=== PATIENT | female | born 1950 | race Caucasian/White ===

== ENCOUNTER 2019-02-22 10:58 | Observation (INO) | payer MEDICARE, OTHER ==
[~2019-02-22] VITALS: Ht 167.6 cm; Wt 84.8 kg
[2019-02-22 11:30] LABS: BASOPHILS ABSOLUTE AUTO 0.04 K/mm3 (0.00-0.23); BASOPHILS PERCENT AUTO 0 % (0-2); EOSINOPHILS ABSOLUTE AUTO 0.01 K/mm3 (0.00-0.68); EOSINOPHILS PERCENT AUTO 0 % (0-6); IMMATURE GRAN ABSOLUTE AUTO 0.03 K/mm3 (0.00-0.10); IMMATURE GRAN PERCENT AUTO 0 % (0-1); LYMPHOCYTES PERCENT AUTO 7 % (21-46); MONOCYTES ABSOLUTE AUTO 0.22 K/mm3 (0.16-1.47); MONOCYTES PERCENT AUTO 2 % (4-13); Mean Corpuscular HGB 26.1 pg (26.0-34.0); Mean Corpuscular HGB Conc 34.2 g/dL (31.5-36.5); Mean Corpuscular Volume 76 fL (80-100); Mean Platelet Volume 9.8 fL (9.1-12.4); NEUTROPHILS PERCENT AUTO 90 % (41-73); Platelet Count 297 K/mm3 (150-400); RDW Coefficient Variation 12.7 % (11.7-14.2); RDW Standard Deviation 34.5 fL (35.1-46.3); Red Blood Cell Count 4.99 M/mm3 (3.80-5.20)
[2019-02-22 11:49] LABS: Alanine Aminotransfer (ALT/SGP 21 U/L (12-78); Albumin, Blood 3.7 g/dL (3.4-5.0); Alk Phos 78 U/L (50-136); Anion Gap 11 mmol/L (6-16); Aspartate Aminotrans (AST/SGOT 14 U/L (12-37); Bilirubin, Total 0.5 mg/dL (0.1-1.0); Blood Urea Nitrogen 19 mg/dL (8-24); Bun/Creatinine Ratio 28.4 (12.0-20.0); CO2, Blood 24 mmol/L (21-32); Calcium, Blood 9.2 mg/dL (8.5-10.1); Chloride, Blood 101 mmol/L (98-108); Creatinine, Blood 0.67 mg/dL (0.40-1.00); Globulin, Blood 3.6 g/dL (2.2-4.0); Glomerular Filtration Rate >60 (60-); Glucose, Blood 242 mg/dL (70-99); Potassium, Blood 3.4 mmol/L (3.5-5.5); Sodium, Blood 136 mmol/L (136-145); Total Protein, Blood 7.3 g/dL (6.4-8.2)
[2019-02-22] MEDS ORDERED: AMLO5 PO (12:17)
[2019-02-22] MEDS ORDERED: METF500 PO (12:17)
[2019-02-22] MEDS ORDERED: GLIP5 PO (12:17)
[2019-02-22] MEDS ORDERED: LOSARTAN-HCTZ1 EAC1 PO (14:42)
--- NOTE | 2019-02-22 17:50 | NUR ---
SHIFT SUMMARY PT A&OX4, VSS, REP PAIN TOLERABLE AT THIS TIME. HITESH PO, DENIES N&V AT THIS TIME. VOIDING WELL. AMB INDEPENDENT TO BRP. SHOWERED TODAY. PLAN FOR NPO AT MIDNIGHT FOR SURGERY TOMORROW. WILL REPORT TO ONCOMING NOC RN.
[2019-02-23 02:53] LABS: BASOPHILS ABSOLUTE AUTO 0.05 K/mm3 (0.00-0.23); BASOPHILS PERCENT AUTO 0 % (0-2); EOSINOPHILS ABSOLUTE AUTO 0.03 K/mm3 (0.00-0.68); EOSINOPHILS PERCENT AUTO 0 % (0-6); Hematocrit 37.4 % (33.0-51.0); Hemoglobin 12.5 g/dL (11.5-16.0); IMMATURE GRAN ABSOLUTE AUTO 0.05 K/mm3 (0.00-0.10); IMMATURE GRAN PERCENT AUTO 0 % (0-1); LYMPHOCYTES ABSOLUTE AUTO 2.19 K/mm3 (0.84-5.20); LYMPHOCYTES PERCENT AUTO 17 % (21-46); MONOCYTES ABSOLUTE AUTO 0.97 K/mm3 (0.16-1.47); MONOCYTES PERCENT AUTO 8 % (4-13); Mean Corpuscular HGB Conc 33.4 g/dL (31.5-36.5); Mean Corpuscular Volume 78 fL (80-100); Mean Platelet Volume 9.8 fL (9.1-12.4); NEUTROPHILS ABSOLUTE AUTO 9.38 K/mm3 (1.96-9.15); NEUTROPHILS PERCENT AUTO 74 % (41-73); Platelet Count 302 K/mm3 (150-400); RDW Coefficient Variation 12.8 % (11.7-14.2); RDW Standard Deviation 36.5 fL (35.1-46.3); White Blood Cell Count 12.67 K/mm3 (4.00-11.30)
[2019-02-23 03:11] LABS: Alanine Aminotransfer (ALT/SGP 16 U/L (12-78); Albumin, Blood 3.3 g/dL (3.4-5.0); Alk Phos 73 U/L (50-136); Anion Gap 8 mmol/L (6-16); Aspartate Aminotrans (AST/SGOT 16 U/L (12-37); Bilirubin, Total 0.5 mg/dL (0.1-1.0); Blood Urea Nitrogen 15 mg/dL (8-24); Bun/Creatinine Ratio 22.5 (12.0-20.0); CO2, Blood 24 mmol/L (21-32); Calcium, Blood 8.5 mg/dL (8.5-10.1); Chloride, Blood 104 mmol/L (98-108); Creatinine, Blood 0.67 mg/dL (0.40-1.00); Globulin, Blood 3.3 g/dL (2.2-4.0); Glomerular Filtration Rate >60 (60-); Glucose, Blood 196 mg/dL (70-99); Potassium, Blood 3.4 mmol/L (3.5-5.5); Sodium, Blood 136 mmol/L (136-145); Total Protein, Blood 6.6 g/dL (6.4-8.2)
--- NOTE | 2019-02-23 08:09 | NUR ---
SHIFT SUMMARY: RANDEE REPORTS THAT HER PAIN IS WELL CONTROLLED WITH 1 MG DILAUDID. EARLY IN THE SHIFT SHE DID HAVE SOME NAUSEA AND VOMITING WHICH HAS RESOLVED. SHE WAS MADE NPO AT MIDNIGHT. SHE IS INDEPEDENT IN THE ROOM, NO DIFFICULTY VOIDING. SHE IS ABLE TO MAKE HER NEEDS KNOWN. SHE IS LYING COMFORTABLY IN BED WITH HER CALL LIGHT IN REACH. VSS.
--- NOTE | 2019-02-23 12:20 | NUR ---
PT TO DAY SURGERY VIA [facility]
--- NOTE | 2019-02-23 12:39 | NUR ---
Surgical site prepped with 2% Chlorhexidine cloth wipe. History, Chart, Medications and Allergies reviewed before start of procedure. Lungs clear T/O to Auscultation. Patient confirms NPO status and agrees with scheduled surgery. Pre-Op teaching done. Pt verbalizes understanding.
--- NOTE | 2019-02-23 15:10 | NUR ---
POST OP RETURNS POST OP TO ROOM. ABD SOFT. LAP SITES x 4. GAUZE W/ TEGADERM OVER. NO DRAINAGE NOTED. DENIES PAIN OR NAUSEA. LUNGS CLEAR. WATER, CRACKERS, AND APPLESAUCE GIVEN. UP TO VOID IMMEDIATELY.
--- NOTE | 2019-02-23 18:08 | NUR ---
SHIFT SUMMARY PT HAS DONE WELL BOTH PRE AND POST OP. UP EASILY IN ROOM, VOIDING, AND HAS DENIED PAIN POST OP. TOLERATING DIET.
--- NOTE | 2019-02-24 04:56 | NUR ---
SHIFT SUMMARY PT IS A/O X4 AND IND IN ROOM. TOLERATING PO INTAKE, VOIDING, AND PASSING GAS. PT HAS REPORTED SOME PAIN AND WAS MED PER ORDERS-SEE EMAR. PT WAS ABLE TO REST THIS SHIFT. PT DID HAVE A MILD FEVER AND WAS GIVEN AN I/S WITH EDUCATION AND RETURNED DEMONSTRATION. FLUIDS HAVE BEEN GOING THROUGHOUT THE SHIFT. ASSISTED WITH ADL'S PRN.
[2019-02-24] MEDS ORDERED: OXYC5 PO (09:21)
--- NOTE | 2019-02-24 09:54 | NUR ---
DISCHARGE PT EXCITED ABOUT D/C HOME. SCRIPT GIVEN. AMBULATING, EATING, DRINKING, VOIDING, PASSING GAS. PAIN WELL CONTROLLED. NO DRAINAGE AT LAP SITES.
== END 2019-02-24 09:55 | disposition home or self-care (01) ==
LOC: ER 10:58 → SURS 14:30 → ER 14:30 → SURS 15:38
PROVIDERS: Emergency Medicine; Surgery; ADMIT Surgery
PROC: 0FT44ZZ Resection of Gallbladder, Percutaneous Endoscopic Approach (ICD-10-PCS; principal; 2019-02-23 14:30)
DX: K80.12 Calculus of gallbladder with acute and chronic cholecystitis without obstruction (principal); C23 Malignant neoplasm of gallbladder; I10 Essential (primary) hypertension; E11.9 Type 2 diabetes mellitus without complications; Z79.84 Long term (current) use of oral hypoglycemic drugs; Z79.899 Other long term (current) drug therapy
CPT/HCPCS: 36415; 74177; 76705; 80053; 82947; 83690; 85025; 88304; 93005; 93010; 96361; 96365; 96366; 96374-59; 96375; 96375-59; 96376; 99285-25; A9270-GY; G0008; G0378; J0694; J1170; J2250; J2405; J2543; J2704; J2710; J3010; J7120; Q9967